=== PATIENT | male | born 1965 | race Two or more races ===

== ENCOUNTER → 2018-09-08 | Outpatient (CLI) | payer OTHER ==
[~2018-09-08] MED LIST: CYCL10TA29 PO; MELO-207 PO; PRED20TA6 PO
--- NOTE | 2018-09-08 16:45 | RADIOLOGY IMAGING REPORT ---
FACILITY: [facility] - [place] PATIENT NAME: Oracio Owusu : 1965 MR: [id number] V: [id number] EXAM DATE: ORDERING PHYSICIAN: MELANY GARCIAS TECHNOLOGIST: [facility] Patient: Oracio Owusu : 1965 Visit/Account:[id number] Date of Sevice: 09/08/2018 THORACO-LUMBAR JUNCTION INDICATION: Pain COMPARISON: None available FINDINGS: The vertebral body heights and disc spaces are well maintained. No acute osseous or acute alignment abnormality. No significant degenerative changes identified. IMPRESSION: 1. No acute osseous or acute alignment abnormality of the thoracolumbar spine. 2. No significant degenerative changes Report Dictated By: Leandro Waddell at 09/08/2018 4:39 PM Report E-Signed By: Leandro Waddell at 09/08/2018 4:40 PM WSN:[email or web address]
== END ==
LOC: RAD 15:45
PROVIDERS: ATTEND Internal Medicine
DX: S39.012A Strain of muscle, fascia and tendon of lower back, initial encounter (principal)
CPT/HCPCS: 72080